=== PATIENT | male | born 1955 | race Caucasian/White ===

== ENCOUNTER 2019-01-20 09:39 | Day surgery (SDC) | payer OTHER ==
[~2019-01-20] VITALS: Ht 170.2 cm; Wt 86.2 kg
[2019-01-20] MEDS ORDERED: PROPOFOL 200 MG/20 ML VIAL IV ONE (12:06)
[2019-01-20] MEDS ORDERED: KETOROLAC 30 MG/ML VIAL ONE (12:06)
[2019-01-20] MEDS ORDERED: DEXAMETHASONE 4 MG/ML VIAL ONE (12:06)
[2019-01-20] MEDS ORDERED: ONDANSETRON 4 MG/2 ML VIAL ONE (12:06)
[2019-01-20] MEDS ORDERED: SEVOFLURANE 250 ML BTL INH ONE (12:06)
[2019-01-20] MEDS ORDERED: MIDAZOLAM 2 MG/2 ML VIAL ONE (12:08)
[2019-01-20] MEDS ORDERED: MEPERIDINE 50 MG/ML SYR ONE (12:08)
[2019-01-20] MEDS ORDERED: fentaNYL 0.05 MG/ML VIAL ONE (12:08)
[2019-01-20] MEDS ORDERED: LIDOCAINE/EPI MPF 1%1:200000 30 ML VIAL INJ ONE (12:12)
[2019-01-20] MEDS ORDERED: BUPIVACAINE-MPF/EPI 0.25% 30 ML VIAL INJ ONE (12:12)
[2019-01-20] MEDS ORDERED: ONDANSETRON 4 MG/2 ML VIAL IVP PRN (12:30)
[2019-01-20] MEDS ORDERED: HYDROmorphone 1 MG/ML AMP IVP PRN (12:30)
[2019-01-20] MEDS ORDERED: LACTATED RINGERS 1,000 ML IV SCH (12:30)
[2019-01-20] MEDS ORDERED: diphenhydrAMINE 50 MG/ML VIAL IVP PRN (12:30)
[2019-01-20] MEDS ORDERED: MEPERIDINE 25 MG/ML SYR IVP PRN (12:30)
== END 2019-01-20 14:00 | disposition home or self-care (01) ==
LOC: MDS 09:39 → MMU 09:40 → MDS 14:00
PROVIDERS: ATTEND Surgery
DX: D17.1 Benign lipomatous neoplasm of skin and subcutaneous tissue of trunk (principal); I10 Essential (primary) hypertension; E78.5 Hyperlipidemia, unspecified; Z79.82 Long term (current) use of aspirin; Z79.899 Other long term (current) drug therapy
CPT/HCPCS: 21933; 71045; 88304; 93005; J0690; J1100; J1885; J2001; J2175; J2250; J2405; J2704; J3010; J3490; J7060; J7120